=== PATIENT | male | born 1965 | race Two or more races ===

== ENCOUNTER 2016-04-16 05:44 | Emergency (ER) | payer MEDICAID ==
[~2016-04-16] VITALS: Ht 180.3 cm; Wt 77.1 kg
[2016-04-16 05:52] VITALS: BP 158/89
[2016-04-16] MEDS ORDERED: IBUPROFEN 800 MG TAB PO ONE (06:00)
== END 2016-04-16 09:00 | disposition left against medical advice (07) ==
LOC: ER 05:48
DX: J02.9 Acute pharyngitis, unspecified (principal); Z53.21 Procedure and treatment not carried out due to patient leaving prior to being seen by health care provider

== ENCOUNTER 2016-12-11 11:13 | Emergency (ER) | payer MEDICAID ==
[~2016-12-11] VITALS: Ht 180.3 cm; Wt 77.1 kg
[2016-12-11] MEDS ORDERED: SODIUM CHLORIDE 0.9% 1,000 ML IVB ONE (11:25)
[2016-12-11 12:23] LABS: Basophils # (auto) 0.1 uL; Eosinophils # (auto) 0.1 uL; Eosinophils % (auto) 1.2 % (0.0-7.0); Lymphocytes # (auto) 1.3 uL; Lymphocytes % (auto) 23.3 % (10.0-50.0); Mean Corpuscular Hemoglobin 32.4 pg (28.0-32.0); Mean Corpuscular Hgb Conc. 33.3 g/dL (32.0-36.0); Mean Corpuscular Volume 97.5 fL (80.0-100.0); Mean Platelet Volume 7.9 fL (6.9-10.8); Monocytes # (auto) 0.5 uL; Monocytes % (auto) 8.8 % (0.0-12.0); Neutrophils # (auto) 3.6 uL; Neutrophils % (auto) 65.7 % (37.0-80.0); Platelet Count (auto) 186 10^3/uL (140-450); Red Cell Distribution Width 13.1 % (11.8-14.3); White Blood Cell 5.5 10^3/uL (4.4-10.8)
[2016-12-11 12:31] LABS: Albumin 3.6 g/dL (3.4-5.0); Anion Gap 7 (5-15); Blood Urea Nitrogen 15 mg/dL (7-18); Carbon Dioxide 28 mmol/L (21-32); Chloride 105 mmol/L (98-107); Glucose 111 mg/dL (74-106); Magnesium 2.4 mg/dL (1.6-2.6); Sodium 140 mmol/L (136-145)
[2016-12-11 12:33] LABS: Aspartate Aminotransferase 43 U/L (15-37); BUN/Creatinine Ratio 22.7; GFR African American 165 mL/min; GFR Non-African American 136 mL/min
[2016-12-11 12:37] LABS: Alkaline Phosphatase 115 U/L (45-117); Bilirubin, Total 0.3 mg/dL (0.2-1.0); Total Protein 8.2 g/dL (6.4-8.2)
[2016-12-11 14:53] VITALS: BP 141/70
== END 2016-12-11 15:40 | disposition home or self-care (01) ==
LOC: ER 11:13 → EDBD 11:13 → ER 15:39
DX: R07.89 Other chest pain (principal); R06.02 Shortness of breath; R11.0 Nausea; F17.210 Nicotine dependence, cigarettes, uncomplicated
CPT/HCPCS: 36415; 71010; 80053; 80307; 83735; 84484; 85025; 93005; 94761; 96360; 99285; J7030

== ENCOUNTER 2018-05-18 18:04 | Emergency (ER) | payer MEDICAID ==
[~2018-05-18] VITALS: Ht 180.3 cm; Wt 83.9 kg
[2018-05-18 19:14] LABS: Basophils # (auto) 0 uL; Basophils % (auto) 0.9 % (0.0-2.0); Eosinophils # (auto) 0.1 uL; Eosinophils % (auto) 2.4 % (0.0-7.0); Hematocrit 38.3 % (41.0-53.0); Lymphocytes # (auto) 1.6 uL; Lymphocytes % (auto) 31.5 % (10.0-50.0); Mean Corpuscular Hemoglobin 32.3 pg (28.0-32.0); Mean Corpuscular Volume 94.9 fL (80.0-100.0); Monocytes # (auto) 0.7 uL; Monocytes % (auto) 13.3 % (0.0-12.0); Neutrophils # (auto) 2.6 uL; Neutrophils % (auto) 51.9 % (37.0-80.0); Nucleated Red Blood Cells % 0.3 %; Platelet Count (auto) 195 10^3/uL (140-450); Red Blood Cells 4.04 10^6/uL (4.5-5.90); Red Cell Distribution Width 13.6 % (11.8-14.3); White Blood Cell 4.9 10^3/uL (4.4-10.8)
[2018-05-18 19:22] LABS: Albumin 3.4 g/dL (3.4-5.0); Calcium 8.9 mg/dL (8.5-10.1); Potassium 3.9 mmol/L (3.5-5.1)
[2018-05-18 19:26] LABS: BUN/Creatinine Ratio 19.5; Bilirubin, Total 0.2 mg/dL (0.2-1.0); Total Protein 8.5 g/dL (6.4-8.2)
[2018-05-18] MEDS ORDERED: VANCOMYCIN 1GM/250ML 250 ML IV ONE (23:30)
[2018-05-18] MEDS ORDERED: MORPHINE SULFATE 4 MG/ML SYR/VIAL IV ONE (23:30)
[2018-05-18] MEDS ORDERED: ONDANSETRON HCL 4 MG/2 ML VIAL IV ONE (23:30)
[2018-05-18] MEDS ORDERED: cefTRIAXone 1GM/50ML D5W 50 ML IV ONE (23:30)
[2018-05-19 05:15] VITALS: BP 129/75
== END 2018-05-19 05:30 | disposition home or self-care (01) ==
LOC: ER 18:04
DX: L03.115 Cellulitis of right lower limb (principal); F17.210 Nicotine dependence, cigarettes, uncomplicated; F12.10 Cannabis abuse, uncomplicated; F11.10 Opioid abuse, uncomplicated
CPT/HCPCS: 36415; 73630; 73700; 80053; 85025; 96365; 96366; 96367; 96375; 99284; J0696; J2270; J2405; J3370

== ENCOUNTER 2019-04-01 16:21 | Emergency (ER) | payer MEDICAID ==
[~2019-04-01] VITALS: Ht 180.3 cm; Wt 86.2 kg
[2019-04-01 18:35] VITALS: BP 128/79
[2019-04-01] MEDS ORDERED: cefTRIAXone SOD 1,000 MG VL IM ONE (19:00)
== END 2019-04-01 19:43 | disposition home or self-care (01) ==
LOC: ER 16:21
DX: L02.416 Cutaneous abscess of left lower limb (principal)
CPT/HCPCS: 96372; 99283; J0696

== ENCOUNTER 2023-07-13 05:44 | Emergency (ER) | payer MEDICAID ==
[~2023-07-13] VITALS: Ht 180.3 cm; Wt 86.3 kg
[2023-07-13 06:03] VITALS: BP 152/77; PULSE 94; RESP 18; TEMP 98.6
[2023-07-13 07:27] VITALS: O2SAT 96
[2023-07-13] MEDS ORDERED: BACDST PO (07:27)
[2023-07-13] MEDS ORDERED: CEPH500C PO (07:28)
[2023-07-13] MEDS: LIDOCAINE 1% HCL (LOCAL ANESTH.) INJ 20ML MDV IJ ONE (07:30)
[2023-07-13] MEDS: LIDOCAINE 1% HCL (LOCAL ANESTH.) INJ 20ML MDV ONE (07:30)
== END 2023-07-13 07:40 | disposition home or self-care (01) ==
LOC: ER 05:44
DX: L02.811 Cutaneous abscess of head [any part, except face] (principal); L73.9 Follicular disorder, unspecified; F12.10 Cannabis abuse, uncomplicated; F11.10 Opioid abuse, uncomplicated; F17.210 Nicotine dependence, cigarettes, uncomplicated
CPT/HCPCS: 10060; 99283; J2001

== ENCOUNTER 2023-07-15 11:06 | Emergency (ER) | payer MEDICAID ==
[~2023-07-15] VITALS: Ht 180.3 cm; Wt 84.8 kg
[~2023-07-15 11:06] MED LIST: BACDST PO; CEPH500C PO
[2023-07-15 13:03] VITALS: BP 146/80; PULSE 90; RESP 18; TEMP 98.1; O2SAT 97
[2023-07-15] MEDS: NEOMYCIN-BACITRACIN-POLYM UNITDOSE PKG TOP OINT TOP ONE (13:27)
== END 2023-07-15 13:51 | disposition home or self-care (01) ==
LOC: ER 11:06
DX: L02.811 Cutaneous abscess of head [any part, except face] (principal); F17.210 Nicotine dependence, cigarettes, uncomplicated; F12.10 Cannabis abuse, uncomplicated; F11.10 Opioid abuse, uncomplicated

== ENCOUNTER 2023-07-17 06:26 | Emergency (ER) | payer MEDICAID | END 2023-07-17 07:35 | disposition left against medical advice (07) | LOC: ER 06:26 | DX: Z48.00 Encounter for change or removal of nonsurgical wound dressing (principal); Z53.21 Procedure and treatment not carried out due to patient leaving prior to being seen by health care provider ==

== ENCOUNTER 2023-09-12 12:12 | Emergency (ER) | payer MEDICAID ==
[~2023-09-12] VITALS: Ht 172.7 cm; Wt 78.0 kg
[2023-09-12 12:39] VITALS: BP 135/81; PULSE 80; RESP 14; O2SAT 94
== END 2023-09-12 18:02 | disposition left against medical advice (07) ==
LOC: ER 12:12 → EDBD 12:12 → ER 18:02
DX: R42 Dizziness and giddiness (principal); R11.0 Nausea; R61 Generalized hyperhidrosis; Z53.21 Procedure and treatment not carried out due to patient leaving prior to being seen by health care provider
CPT/HCPCS: 93005

== ENCOUNTER 2023-10-04 21:56 | Emergency (ER) | payer MEDICAID ==
[~2023-10-04] VITALS: Ht 180.3 cm; Wt 98.2 kg
[2023-10-05] MEDS ORDERED: BACDST PO (00:08)
[2023-10-05] MEDS: KETOROLAC TROMETH 30 MG/ML 1ML VIAL IM ONE (00:46)
[2023-10-05 01:34] VITALS: BP 129/84; PULSE 87; RESP 19; TEMP 98.5; O2SAT 97
== END 2023-10-05 01:39 | disposition home or self-care (01) ==
LOC: ER 21:56
DX: L02.811 Cutaneous abscess of head [any part, except face] (principal); F17.210 Nicotine dependence, cigarettes, uncomplicated; F12.10 Cannabis abuse, uncomplicated; F15.10 Other stimulant abuse, uncomplicated
CPT/HCPCS: 96372; 99283; J1885

== ENCOUNTER 2024-01-25 12:02 | Emergency (ER) | payer MEDICAID ==
[~2024-01-25] VITALS: Ht 177.8 cm; Wt 77.2 kg
--- NOTE | 2024-01-25 12:35 | ED.PDOC ---
History of Present Illness HPI Comments This is a 58-year-old male comes in to the ED by EMS with chief complain of nausea, vomiting, diarrhea and lower back pain. He has a past medical history relevant for hypertension, not taking any medications. He has a has a history of polysubstance abuse such as methamphetamines, fentanyl, cannabis, heavy ni cotine smoker as well. Patient stated that he woke up today with severe lower back pain, localized, nonradiating, sharp, he stated that it was associated with nausea, he also had four episodes of vomiting, no hematemesis or coffee-ground, he also stated ex periencing episodes of diarrhea today, he had around six which he said they were mostly dark color. He denies any prior history of hematochezia, melena, denied any surgical procedures. Patient currently denies any chest pain, shortness of breath, dizziness, lightheadedness, abdominal pain. Chief Complaint: Nausea, vomiting, diarrhea, back pain Time Seen by MD: 12:15 Primary Care Provider: NONE Reviewed Notes: Nurses Notes Allergies: Coded Allergies: NO KNOWN ALLERGIES (Unverified , 05/18/18) Home Meds Active Scripts Sulfamethoxazole W/Trimethopri (Bactrim Ds Tablet) 1 Tab Tb, 1 TAB PO BID for 7 Days, #14 TAB Prov:LUISA MORSE PAC 10/05/23 Cephalexin Monohydrate (Cephalexin) 500 Mg Cap, 1 CAP PO QID, #28 CAP Prov:JAYLAN LORD 07/13/23 Sulfamethoxazole W/Trimethopri (Bactrim Ds Tablet) 1 Tab Tb, 1 TAB PO BID, #20 TAB Prov:JAYLAN LORD 07/13/23 Information Source: Patient Mode of Arrival: EMS Severity: Moderate Timing: Hours Duration: Since onset Past Medical History PAST MEDICAL HISTORY: HTN Surgical History: Denies all surgeries Family History Family History: Reviewed,noncontributory to illness, No family hx of Cancer, No family hx of DM, No family hx of Heart elias, No family hx of HTN, No family hx ofKidney elias, No family hx of Liver elias, No family hx of Lung elias, No family hx of Stroke Social History Smoker: Cigarettes, Greater Than 1 Pack/Day Alcohol: Denies ETOH Use Drugs: Heroin, Marijuana, Methamphetamine Lives In: Home Constitutional: denies: chills, diaphoresis, fatigue, fever, malaise, sweats, weakness, others EENTM: denies: blurred vision, double vision, ear bleeding, ear discharge, ear drainage, ear pain, ear ringing, eye pain, eye redness, hearing loss, mouth pain, mouth swelling, nasal discharge, nose bleeding, nose congestion, nose pain, photophobia, tearing, throat pain, throat swelling, voice changes, others Respiratory: denies: cough, hemoptysis, orthopnea, SOB at rest, shortness of breath, SOB with excertion, stridor, wheezing, others Cardiovascular: denies: chest pain, dizzy spells, diaphoresis, Dyspnea on exertion, edema, irregular heart beat, left arm pain, lightheadedness, palpitations, PND, syncope, others Gastrointestinal: reports: diarrhea, melena, nausea, poor appetite, vomiting; denies: abdomen distended, abdominal pain, blood streaked bowels, constipated, dysphagia, difficulty swallowing, hematemesis, poor fluid intake, rectal bleeding, rectal pain, others Genitourinary: denies: burning, dysuria, flank pain, frequency, hematuria, incontinence, penile discharge, penile sore, pain, testicle pain, testicle swelling, urgency, others Neurological: denies: dizziness, fainting, headache, left sided numbness, left sided weakness, numbness, paresthesia, pre-existing deficit, right sided numbness, right sided weakness, seizure, speech problems, tingling, tremors, weakness, others Musculoskeletal: reports: back pain; denies: gout, joint pain, joint swelling, muscle pain, muscle stiffness, neck pain, others Integumetry: denies: bruises, change in color, change in hair/nails, dryness, laceration, lesions, lumps, rash, wounds, others Allergic/Immunocompromised: denies: Difficulty Healing, Frequent Infections, Hives, Itching, others Hematologic/Lymphatic: denies: anemia, blood clots, easy bleeding, easy bruising, swollen glands, others Endocrine: denies: excessive hunger, excessive sweating, excessive thirst, excessive urination, flushing, intolerance to cold, intolerance to heat, unexplained weight gain, unexplained weight loss, others Psychiatric: denies: anxiety, bipolar disorder, depression, hopeless, panic disorder, schizophrenia, sleepless, suicidal, others Physical Exam General Appearance: Moderate Distress, Normal HEENT: Normal ENT Inspection, Pharynx Normal, TMs Normal Neck: Full Range of Motion, Non-Tender, Normal, Normal Inspection Respiratory: Chest Non-Tender, Lungs Clear, No Accessory Muscle Use, No Respiratory Distress, Normal Breath Sounds Cardiovascular: No Edema, No JVD, No Murmur, No Gallop, Normal Peripheral Pulses, Regular Rate/Rhythm Breast Exam: Deferred Gastrointestinal: No Organomegaly, Non Tender, No Pulsatile Mass, Normal Bowel Sounds, Soft Genitalia: Deferred Pelvic: Deferred Rectal: Deferred Extremities: No calf tenderness, Normal capillary refill, Normal inspection, Normal range of motion, Non-tender, No pedal edema Neurologic: Alert, 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 Was a procedure done?: No Differential Dx Considerations may include: UTI, GI bleeding, chronic back pain, gastroenteritis, gastritis, pancreatitis, cholelithiasis, X-Ray, Labs, Meds, VS Vital Signs Date Time Temp Pulse Resp B/P (MAP) Pulse Ox O2 Delivery O2 Flow Rate FiO2 01/25/24 13:02 103 17 99 Room Air 01/25/24 13:02 98.8 103 17 127/91 (103) 99 98.8 01/25/24 12:44 99.3 92 22 182/103 (129) 98 Patient is in moderate distress due to pain, and appears to be anxious, we will order a CBC, CMP, lipase, UA, we will place the patient NPO, we will continue to reassess. On reassessment, patient eloped before getting any treatment or drawing any blood work, tagman department will be contacted. Patient has a poor prognosis given elopement and history of noncompliance. Images Reviewed?: Images reviewed and evaluated by me Time of 1ST Reevaluation: 12:27 Reevaluation 1ST: Unchanged Patient Education/Counseling: Diagnosis, Treatment Family Education/Counseling: No Family Present Departure 1 Departure Time of Disposition: 14:45 Impression: Primary Impression: Lumbar sprain Additional Impressions: Lumbar radiculopathy Musculoskeletal pain UTI (urinary tract infection) Polysubstance abuse Disposition: 07 LEFT AWOL/ELOPED Condition: Poor Critical Care Note Critical Care Time?: No Stability Stability form required: No Heart Score Heart Score: Heart Score Response (Comments) Value History N/A 0 EKG N/A 0 Age N/A 0 Risk Factors N/A 0 Troponin N/A 0 Total 0 MEHDI DALTON RESIDENT Jan 25, 2024 12:35
[2024-01-25] MEDS: KETOROLAC TROMETH 60MG/2ML VIAL IM ONE (13:00)
[2024-01-25 13:02] VITALS: BP 127/91; PULSE 103; RESP 17; TEMP 98.8; O2SAT 99
== END 2024-01-25 14:24 | disposition left against medical advice (07) ==
LOC: EDBD 12:02 → ER 12:02
DX: S33.5XXA Sprain of ligaments of lumbar spine, initial encounter (principal); M54.16 Radiculopathy, lumbar region; N39.0 Urinary tract infection, site not specified; I10 Essential (primary) hypertension; F17.210 Nicotine dependence, cigarettes, uncomplicated; F19.11 Other psychoactive substance abuse, in remission; M79.18 Myalgia, other site; F12.10 Cannabis abuse, uncomplicated; F15.10 Other stimulant abuse, uncomplicated; X58.XXXA Exposure to other specified factors, initial encounter; Y93.89 Activity, other specified; Y92.89 Other specified places as the place of occurrence of the external cause; Y99.8 Other external cause status
CPT/HCPCS: 99283; J1885